=== PATIENT | male | born 1970 | race African-American/Black ===

== ENCOUNTER 2020-08-29 13:33 | Emergency (ER) | payer OTHER ==
[2020-08-29 13:44] VITALS: BP 137/91; PULSE 78; BMI 28.8
[2020-08-29] MEDS ORDERED: DIPHTH,PERTUSS(ACELL),TET 0.5 ML DISP.SYRIN IM ONE ×2 (14:38→14:58)
== END 2020-08-29 16:06 | disposition home or self-care (01) ==
LOC: JER 13:33 → JERFT 13:33
PROC: 3E0234Z Introduction of Serum, Toxoid and Vaccine into Muscle, Percutaneous Approach (ICD-10-PCS; principal; 2020-08-29)
DX: S59.901A Unspecified injury of right elbow, initial encounter (principal); S51.011A Laceration without foreign body of right elbow, initial encounter; V89.2XXA Person injured in unspecified motor-vehicle accident, traffic, initial encounter
CPT/HCPCS: 73070-TC-RT-FY; 90715; 99284-25

== ENCOUNTER 2020-09-06 09:19 | Emergency (ER) | payer OTHER ==
[2020-09-06 09:47] VITALS: BP 123/82; PULSE 77; TEMP 98; BMI 28.8
[2020-09-06] MEDS ORDERED: BACITRACIN 15 GM TUBE TOPICAL OINTMENT TP ONE (10:05)
[2020-09-06] MEDS ORDERED: BACITRACIN 15 GM TUBE TOPICAL OINTMENT ONE (10:07)
== END 2020-09-06 10:40 | disposition home or self-care (01) ==
LOC: JER 09:19
DX: S59.901A Unspecified injury of right elbow, initial encounter (principal); Z48.02 Encounter for removal of sutures
CPT/HCPCS: 99281-25

== ENCOUNTER 2020-09-12 14:26 | Inpatient (IN) | payer OTHER ==
[2020-09-12 14:38] VITALS: BMI 28.8
[2020-09-12] MEDS ORDERED: VANCOMYCIN 1 GM in D5W (PRE-DOCKED) 1,000 MG/250 ML IVPB ONE (15:46)
[2020-09-12 17:00] LABS: BASO % 0.6 % (0-2.0); EOS % 0.3 % (0-4.5); HEMATOCRIT 43.8 % (35.4-49); LYMPH % 9.8 % (8-40); MCH 28.4 pg (25.7-33.7); MCHC 34.3 g/dl (32.0-35.9); MEAN CELL VOLUME 82.8 fl (80-96); MEAN PLT VOLUME 8.7 fl (7.5-11.1); MONO % 7.1 % (3.8-10.2); NEUT % 82.2 % (42.8-82.8); PLATELET COUNT 220 K/MM3 (134-434); RBC 5.29 M/mm3 (4.00-5.60); RDW 13.9 % (11.9-15.9); WHITE BLOOD COUNT 10.4 K/mm3 (4.0-10.0)
[2020-09-12] MEDS ORDERED: VANCOMYCIN 1 GRAM (PRE-DOCKED) 1,000 MG/250 ML BAG IVPB ONE (17:15)
[2020-09-12 17:25] LABS: POTASSIUM 4.2 mmol/L (3.5-5.1)
[2020-09-12 17:27] LABS: CALCIUM 8.8 mg/dL (8.5-10.1)
[2020-09-12 17:31] LABS: CREATININE 0.9 mg/dL (0.55-1.3)
[2020-09-12 17:32] LABS: BILIRUBIN,TOTAL 0.7 mg/dL (0.2-1); TOT PROT 7.5 g/dl (6.4-8.2)
[2020-09-12] MEDS ORDERED: PIPERACILLIN/TAZOB 3.375 GM 3.375 GM in DEXTROSE 5%-WATER - 50 ML IVPB ONE (19:02)
[2020-09-12] MEDS ORDERED: CLINDAMYCIN 600MG PREMIX IVPB 600 MG/50 ML BAG IVPB ONE (19:10)
[2020-09-12] MEDS ORDERED: CLINDAMYCIN PHOSPHATE 600 MG/4 ML VIAL ONE (20:49)
[2020-09-12] MEDS ORDERED: PIPERACILLIN/TAZOB 3.375 GM 3.375 GM/50 ML BAG IVPB ONE (20:49)
[2020-09-12] MEDS: CARVEDILOL 6.25 MG TABLET (FP) PO SCH (22:42)
[2020-09-12] MEDS: SACUBITRIL/VALSARTAN 97 MG-103 MG TABLET PO SCH (22:42)
[2020-09-13] MEDS: CLINDAMYCIN 600MG PREMIX IVPB 600 MG/50 ML BAG IVPB SCH ×3 (04:56→18:15)
[2020-09-13] MEDS ORDERED: CLINDAMYCIN 600MG PREMIX IVPB 600 MG/50 ML BAG IVPB ONE ×3 (04:56→18:32)
[2020-09-13 07:19] LABS: MCH 28.3 pg (25.7-33.7); MCHC 34.1 g/dl (32.0-35.9); MEAN CELL VOLUME 82.9 fl (80-96); MEAN PLT VOLUME 8.5 fl (7.5-11.1); PLATELET COUNT 204 K/MM3 (134-434); RBC 4.95 M/mm3 (4.00-5.60); WHITE BLOOD COUNT 11.1 K/mm3 (4.0-10.0)
[2020-09-13 07:42] LABS: POTASSIUM 4.1 mmol/L (3.5-5.1)
[2020-09-13 07:48] LABS: CALCIUM 8.5 mg/dL (8.5-10.1)
[2020-09-13 07:49] LABS: BLOOD UREA NITROGEN 18.1 mg/dL (7-18); MAGNESIUM 1.8 mg/dL (1.8-2.4)
[2020-09-13 07:52] LABS: CREATININE 0.9 mg/dL (0.55-1.3)
[2020-09-13] MEDS ORDERED: ENOXAPARIN NA (PORCINE) 40 MG/0.4 ML DISP.SYRIN SQ ONE (09:47)
[2020-09-13] MEDS: SACUBITRIL/VALSARTAN 97 MG-103 MG TABLET PO SCH ×2 (10:01→22:58)
[2020-09-13] MEDS: ENOXAPARIN NA (PORCINE) 40 MG/0.4 ML DISP.SYRIN SQ SCH (10:01)
[2020-09-13] MEDS: CARVEDILOL 6.25 MG TABLET (FP) PO SCH ×2 (10:01→22:57)
[2020-09-13] MEDS ORDERED: PIPERACILLIN/TAZOB 3.375 GM 3.375 GM/50 ML BAG IVPB ONE (21:24)
[2020-09-13] MEDS: PIPERACILLIN/TAZOB 3.375 GM 3.375 GM in DEXTROSE 5%-WATER - 50 ML IVPB SCH (21:39)
[2020-09-13] MEDS: ATORVASTATIN CA 40 MG TABLET (FP) PO SCH (22:57)
[2020-09-13] MEDS: VANCOMYCIN 1 GRAM (PRE-DOCKED) 1,000 MG/250 ML BAG IVPB SCH (23:27)
[2020-09-14] MEDS ORDERED: PIPERACILLIN/TAZOBACTAM 3.375 GM VIAL IVPB ONE ×4 (00:44→16:56)
[2020-09-14] MEDS ORDERED: DEXTROSE 5%-WATER - 50 ML IVPB ONE ×4 (00:44→16:56)
[2020-09-14] MEDS: PIPERACILLIN/TAZOB 3.375 GM 3.375 GM in DEXTROSE 5%-WATER - 50 ML IVPB SCH ×3 (01:03→17:02)
[2020-09-14 09:13] LABS: BASO % 0.4 % (0-2.0); EOS % 0.9 % (0-4.5); HEMATOCRIT 40.4 % (35.4-49); HEMOGLOBIN 13.8 GM/dL (11.7-16.9); LYMPH % 14.9 % (8-40); MCH 28.6 pg (25.7-33.7); MCHC 34.2 g/dl (32.0-35.9); MEAN CELL VOLUME 83.6 fl (80-96); MEAN PLT VOLUME 8.9 fl (7.5-11.1); MONO % 13.2 % (3.8-10.2); NEUT % 70.6 % (42.8-82.8); PLATELET COUNT 200 K/MM3 (134-434); RBC 4.84 M/mm3 (4.00-5.60); RDW 13.4 % (11.9-15.9); WHITE BLOOD COUNT 9.9 K/mm3 (4.0-10.0)
[2020-09-14 09:15] LABS: ALBUMIN 3.3 g/dl (3.4-5.0); BLOOD UREA NITROGEN 16.3 mg/dL (7-18); CALCIUM 8.7 mg/dL (8.5-10.1)
[2020-09-14 09:18] LABS: CREATININE 0.9 mg/dL (0.55-1.3)
[2020-09-14 09:20] LABS: BILIRUBIN,TOTAL 1.3 mg/dL (0.2-1); TOT PROT 6.7 g/dl (6.4-8.2)
[2020-09-14] MEDS ORDERED: PT OWN MED DRAWER 7, Y5N ONE (09:26)
[2020-09-14] MEDS: CARVEDILOL 6.25 MG TABLET (FP) PO SCH ×2 (09:47→22:58)
[2020-09-14] MEDS: ENOXAPARIN NA (PORCINE) 40 MG/0.4 ML DISP.SYRIN SQ SCH (09:47)
[2020-09-14] MEDS: VANCOMYCIN 1 GRAM (PRE-DOCKED) 1,000 MG/250 ML BAG IVPB SCH ×2 (09:48→21:38)
[2020-09-14] MEDS: SACUBITRIL/VALSARTAN 97 MG-103 MG TABLET PO SCH ×2 (13:46→22:58)
[2020-09-14] MEDS ORDERED: ATORVASTATIN CA 20 MG TABLET (FP) ONE (22:56)
[2020-09-14] MEDS: ATORVASTATIN CA 40 MG TABLET (FP) PO SCH (22:58)
[2020-09-15] MEDS ORDERED: PIPERACILLIN/TAZOBACTAM 3.375 GM VIAL IVPB ONE ×3 (01:49→17:43)
[2020-09-15] MEDS ORDERED: DEXTROSE 5%-WATER - 50 ML IVPB ONE ×3 (01:50→17:44)
[2020-09-15] MEDS: PIPERACILLIN/TAZOB 3.375 GM 3.375 GM in DEXTROSE 5%-WATER - 50 ML IVPB SCH ×3 (01:52→17:52)
[2020-09-15 09:21] LABS: BASO % 0.3 % (0-2.0); EOS % 1.7 % (0-4.5); HEMATOCRIT 40.8 % (35.4-49); LYMPH % 21.3 % (8-40); MCH 28.5 pg (25.7-33.7); MCHC 34.2 g/dl (32.0-35.9); MEAN CELL VOLUME 83.3 fl (80-96); MEAN PLT VOLUME 8.8 fl (7.5-11.1); NEUT % 63.7 % (42.8-82.8); PLATELET COUNT 211 K/MM3 (134-434); RDW 13.6 % (11.9-15.9); WHITE BLOOD COUNT 8.2 K/mm3 (4.0-10.0)
[2020-09-15 09:43] LABS: POTASSIUM 4.1 mmol/L (3.5-5.1)
[2020-09-15] MEDS: ENOXAPARIN NA (PORCINE) 40 MG/0.4 ML DISP.SYRIN SQ SCH (09:52)
[2020-09-15 09:53] LABS: ALBUMIN 3.2 g/dl (3.4-5.0); CALCIUM 8.7 mg/dL (8.5-10.1)
[2020-09-15] MEDS: CARVEDILOL 6.25 MG TABLET (FP) PO SCH (09:53)
[2020-09-15] MEDS: VANCOMYCIN 1 GRAM (PRE-DOCKED) 1,000 MG/250 ML BAG IVPB SCH (09:53)
[2020-09-15 09:54] LABS: BLOOD UREA NITROGEN 13.6 mg/dL (7-18)
[2020-09-15 09:56] LABS: CREATININE 0.9 mg/dL (0.55-1.3)
[2020-09-15 09:57] LABS: BILIRUBIN,TOTAL 1.4 mg/dL (0.2-1); TOT PROT 6.8 g/dl (6.4-8.2)
[2020-09-15] MEDS: SACUBITRIL/VALSARTAN 97 MG-103 MG TABLET PO SCH (17:43)
[2020-09-15 18:52] VITALS: BP 128/78; PULSE 86; TEMP 98.3
== END 2020-09-15 19:12 | disposition home or self-care (01) | DRG 383 ==
LOC: JER 14:26 → JERBED 16:41 → J7W 09-13 22:05
PROVIDERS: ADMIT Internal Medicine; ATTEND Internal Medicine
DX: L03.113 Cellulitis of right upper limb (principal); I10 Essential (primary) hypertension; I50.22 Chronic systolic (congestive) heart failure; E78.5 Hyperlipidemia, unspecified; E66.9 Obesity, unspecified; Z68.30 Body mass index [BMI] 30.0-30.9, adult
CPT/HCPCS: 36415; 73201-TC-RT; 80048; 80053; 80061; 82550; 83036; 83721; 83735; 84100; 84443; 85025; 85027; 87040; 93005; 93010; 99285-25; C9803; Q9967; U0003